=== PATIENT | female | born 1995 | race Caucasian/White ===

== ENCOUNTER 2020-08-16 11:18 | Outpatient (REF) | payer OTHER, SELFPAY | END 2020-08-16 11:19 | disposition home or self-care (01) | LOC: HO.LAB 11:18 | PROVIDERS: Visit Provider Internal Medicine | DX: Z20.822 Contact with and (suspected) exposure to COVID-19 (principal) | CPT/HCPCS: C9803; U0003; U0005 ==

== ENCOUNTER → 2021-01-11 13:49 | Outpatient (BNVA) | payer OTHER, SELFPAY | PROVIDERS: Visit Provider Advanced Practice Midwife ==

== ENCOUNTER → 2021-02-07 13:59 | Outpatient (BNVA) | payer OTHER, SELFPAY | PROVIDERS: Visit Provider Advanced Practice Midwife | DX: O09.892 Supervision of other high risk pregnancies, second trimester (principal); O13.2 Gestational [pregnancy-induced] hypertension without significant proteinuria, second trimester; Z68.35 Body mass index [BMI] 35.0-35.9, adult | CPT/HCPCS: 99212 ==

== ENCOUNTER 2021-02-22 11:02 | Outpatient (REF) | payer OTHER, SELFPAY ==
--- NOTE | ~2021-02-22 | US_ITS ---
EXAMINATION: US OBSTETRICAL CLINICAL INFORMATION: 25-year-old at 26.1 weeks of gestation Insufficient care Suspected anomaly COMPARISON: None TECHNIQUE: Real-time transabdominal ultrasound was performed using C1-5 megahertz transducer. FINDINGS: A single, active, fetus is seen in vertex presentation. The placenta is anterior without previa, and the amniotic fluid volume is wnl. MEASUREMENTS: 1. Biparietal Diameter: 6.1 cm; 25.0 wks 2. Occipital Frontal Diameter: 8.7 cm 3. Head Circumference: 23.9 cm; 26.0 wks 4. Abdominal Circumference: 22.1 cm; 26.4 wks 5. Femur Length: 4.7 cm; 25.6 wks 6. Humerus Length: 4.5 cm; 26.4 wks 7. Tibia Length: 4.3 cm; 26.6 wks 8. Ulna Length: 3.9 cm; 25.4 wks 9. Lateral ventricle: 0.14 cm 10. Cerebellum: 3.0 cm; 28.1 wks 11. Cisterna Magna: 0.58 cm 12. Nuchal Fold: N/A mm 13. Heart Rate: 134 beats per minute Rt ovary: normal Lt ovary: normal Cervical length 3.6 cm on T/A. GESTATIONAL AGE: 1. Established GA: 26.1 wks 2. GA from [facility]: 25.6 wks ESTIMATED DATE OF DELIVERY: 1. Established LIVIER: 05/30/2021 2. LIVIER from [facility]: 06/01/2021 ANATOMY: The visualized anatomy includes but not limited to: 1. Cranium: Normal 2. Intracranial anatomy: cavum septum pellucidi, lateral ventricles, choroid plexus, cerebellum, posterior fossa, third and fourth ventricles. 3. face: orbits, lip/palate, profile, nasal bone 4. Heart: four-chamber view of the heart, ventricular septum, foramen ovale, pulmonary vein, left and right outflow tracts, three-vessel view, 3 vessel trachea view, aortic and ductal arches, situs.. 5. Diaphragm: Normal 6. Abdominal wall: Normal 7. Cord Insertion: Normal 8. Spine: Cervical, thoracic, lumbar, sacral. 9. Stomach: Normal size and shape 10. Right Kidney: Normal 11. Left Kidney: Normal 12. 3 vessel cord: Normal 13. Upper extremity: Open hands, fifth digit. 14. Lower extremity: Tibia, fibula, bilateral feet. 15. Bladder: Normal 16. Genitalia: Female, patient aware US/US OB /maternal detail IMPRESSION: 1. Single, living, intrauterine with appropriate biometry. 2. Normal survey DISCUSSION: I reviewed today's ultrasound findings. We discussed the limitations of ultrasound in diagnosing aneuploidy and other congenital abnormalities. I reviewed the differences between screening test and diagnostic test. Amniocentesis was discussed and declined. She was informed that the baseline incidence of congenital abnormalities is approximately 3-5%. Not all these conditions are diagnosable in utero. RECOMMENDATIONS: 1. Follow-up when necessary. Thank you for allowing me to participate in her care. Total time 20 minutes. The time spent was devoted to counseling the patient about the disease and diagnosis, coordinating care including reviewing her records, pertinent lab data and studies, as well as discussing diagnostic evaluation and workup, plan therapeutic interventions and future disposition of care. This includes any additional research needed to obtain further information in formulating the plan of care of this patient. This note was generated with a voice recognition program. Please excuse any errors which may have been overlooked during my review of this note. Sometimes these errors may affect the content or meaning of a given sentence.
== END 2021-02-22 11:03 | disposition home or self-care (01) ==
LOC: HO.US 11:02
PROVIDERS: Visit Provider Advanced Practice Midwife
DX: O09.892 Supervision of other high risk pregnancies, second trimester (principal)
CPT/HCPCS: 76811

== ENCOUNTER 2021-03-29 13:31 | Outpatient (REF) | payer OTHER, SELFPAY ==
[2021-03-29 16:50] LABS: Hematocrit 34.9 % (37.0-47.0); Hemoglobin 11.1 g/dl (12.0-16.0); Mean Corpuscular HGB Conc 31.8 g/dl (31.0-35.0); Mean Corpuscular Hemoglobin 28.1 pg (27.0-33.0); Mean Corpuscular Volume 88.4 fL (80.0-98.0); Mean Platelet Volume 11.1 fL (9.4-12.3); Platelet Count 234 X10*3/uL (160-400); Red Blood Count 3.95 X10*6/uL (4.20-5.50); Red Cell Distribution Width 13.6 % (11.0-16.0); White Blood Count 12.1 X10*3/uL (4.8-10.8)
[2021-03-29 17:02] LABS: Glucose 1 Hour PP 50gm Dose 131 mg/dL (60-140)
[2021-03-29 17:25] LABS: Syphilis Screen Nonreactive (Nonreactive)
[2021-03-31 14:51] LABS: BV Int Neg Control Negative (Negative); BV Int Pos Control Positive (Positive)
[2021-03-31 17:43] LABS: CT PCR NOT DETECTED (Not Detect.); NG PCR NOT DETECTED (Not Detect.)
== END 2021-03-29 13:32 | disposition home or self-care (01) ==
LOC: HO.LAB 13:31
PROVIDERS: Advanced Practice Midwife; Visit Provider Advanced Practice Midwife
DX: O13.3 Gestational [pregnancy-induced] hypertension without significant proteinuria, third trimester (principal); O09.893 Supervision of other high risk pregnancies, third trimester; Z3A.31 31 weeks gestation of pregnancy
CPT/HCPCS: 36415; 81003; 85027; 86780; 87480; 87491; 87510; 87591; 87660; 99212

== ENCOUNTER → 2021-04-15 13:37 | Outpatient (BNVA) | payer OTHER, SELFPAY | PROVIDERS: Visit Provider Advanced Practice Midwife | DX: O09.893 Supervision of other high risk pregnancies, third trimester (principal); O13.3 Gestational [pregnancy-induced] hypertension without significant proteinuria, third trimester; O99.213 Obesity complicating pregnancy, third trimester; Z3A.33 33 weeks gestation of pregnancy | CPT/HCPCS: 81003; 99212 ==

== ENCOUNTER → 2021-04-29 13:46 | Outpatient (BNVA) | payer OTHER, SELFPAY | PROVIDERS: Visit Provider Advanced Practice Midwife | DX: O09.893 Supervision of other high risk pregnancies, third trimester (principal); Z3A.35 35 weeks gestation of pregnancy; Z79.82 Long term (current) use of aspirin | CPT/HCPCS: 81003; 99212 ==